=== PATIENT | female | born 1960 | race Caucasian/White ===

== ENCOUNTER → 2016-06-03 | Outpatient (CLI) | payer OTHER ==
[~2016-06-03] MED LIST: CALCIUM + VITA1 EACH PO; CALCIUM 600 +1 EAC3 PO; CENTRUM COMPLE1 EACH PO; CENTRUM SILVER1 TAB PO; COLACE100 MG PO; CYMBALTA60 MG PO; DILAUDID2 MG PO; FERROUS SULFAT134 MG PO; LEXAPRO20 MG PO; MILK OF MA400 MG/5 M PO; MIRALAX17 GM PO; MOBIC15 MG PO; PRILOSEC20 M1 PO; PRILOSEC20 MG PO; TYLENOL325 MG PO; VALIUM5 MG PO; XARELTO10 MG PO; ZOCOR20 MG PO; ZYRTEC10 MG PO
== END | disposition disaster alternative care site (69) ==
LOC: GBCOE 13:52
DX: Z12.31 Encounter for screening mammogram for malignant neoplasm of breast (principal)
CPT/HCPCS: G0202

== ENCOUNTER → 2016-10-21 | Outpatient (CLI) | payer OTHER | END | disposition disaster alternative care site (69) | LOC: GRAD 14:54 | DX: R91.1 Solitary pulmonary nodule (principal); J84.10 Pulmonary fibrosis, unspecified ==

== ENCOUNTER 2016-11-04 07:02 | Day surgery (SDC) | payer OTHER ==
[~2016-11-04] VITALS: Ht 162.6 cm; Wt 78.6 kg
== END 2016-11-04 10:00 | disposition disaster alternative care site (69) ==
LOC: GSIP 07:02 → GEND 07:02
PROC: 0DB98ZX Excision of Duodenum, Via Natural or Artificial Opening Endoscopic, Diagnostic (ICD-10-PCS; principal; 2016-11-04)
PROC: 0DB68ZX Excision of Stomach, Via Natural or Artificial Opening Endoscopic, Diagnostic (ICD-10-PCS; 2016-11-04)
PROC: 0DB48ZX Excision of Esophagogastric Junction, Via Natural or Artificial Opening Endoscopic, Diagnostic (ICD-10-PCS; 2016-11-04)
PROC: 0DBB8ZX Excision of Ileum, Via Natural or Artificial Opening Endoscopic, Diagnostic (ICD-10-PCS; 2016-11-04)
PROC: 0DBP8ZX Excision of Rectum, Via Natural or Artificial Opening Endoscopic, Diagnostic (ICD-10-PCS; 2016-11-04)
PROC: 0DBH8ZX Excision of Cecum, Via Natural or Artificial Opening Endoscopic, Diagnostic (ICD-10-PCS; 2016-11-04)
DX: R10.32 Left lower quadrant pain (principal); R10.12 Left upper quadrant pain; K52.9 Noninfective gastroenteritis and colitis, unspecified; E78.5 Hyperlipidemia, unspecified; M17.10 Unilateral primary osteoarthritis, unspecified knee; F41.8 Other specified anxiety disorders; E83.10 Disorder of iron metabolism, unspecified; R41.3 Other amnesia; R91.1 Solitary pulmonary nodule; Z79.899 Other long term (current) drug therapy; F10.10 Alcohol abuse, uncomplicated; Z90.710 Acquired absence of both cervix and uterus; Z98.890 Other specified postprocedural states
CPT/HCPCS: J2001; J7030

== ENCOUNTER → 2016-11-06 | Outpatient (CLI) | payer OTHER | LOC: GKIC 11:28 | DX: R91.1 Solitary pulmonary nodule (principal); J98.11 Atelectasis | CPT/HCPCS: A9552 ==